=== PATIENT | female | born 1995 | race Caucasian/White ===

== ENCOUNTER 2022-05-30 14:57 | Emergency (ER) | payer OTHER ==
[~2022-05-30] VITALS: Ht 172.7 cm; Wt 65.8 kg
[2022-05-30 15:07] VITALS: BP 113/43
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
--- NOTE | 2022-05-30 16:32 | NUR ---
PT AMBULATED TO BATHROOM WITH STEADY GAIT
--- NOTE | 2022-05-30 16:37 | NUR ---
PT STATING THAT SHE IS GOING TO LEAVE, DENIES ANY DIZZINESS, AMBULATES WITH STEADY GAIT, IV REMOVED.
--- NOTE | 2022-05-30 16:38 | NUR ---
PATIENT LEFT WITHOUT BEING SEEN BY DR. PAYTON. NO FURTHER CARE PROVIDED FOR PATIENT.
== END 2022-05-30 16:38 | disposition left against medical advice (07) ==
LOC: MED 14:57
DX: R55 Syncope and collapse (principal); R42 Dizziness and giddiness; Z53.21 Procedure and treatment not carried out due to patient leaving prior to being seen by health care provider
CPT/HCPCS: 93005